=== PATIENT | female | born 1970 | race Caucasian/White ===

== ENCOUNTER 2017-01-28 15:01 | Emergency (ER) | payer MEDICAID ==
[~2017-01-28] VITALS: Ht 160 cm; Wt 66.0 kg
[2017-01-28 15:05] VITALS: Ht 160 cm; Wt 66.0 kg
[2017-01-28] MEDS ORDERED: KETOROLAC 30 MG INJ IV STA (15:31)
[2017-01-28] MEDS ORDERED: SOD CHLORIDE 0.9% 100 ML ONE (17:21)
[2017-01-28] MEDS ORDERED: IOHEXOL 300MG/ML 150 ML BTL ONE (17:21)
--- NOTE | 2017-01-28 18:34 | RADRPT ---
PROCEDURE: CT Abdomen and Pelvis with contrast. CLINICAL INDICATION: Right lower quadrant and lower abdominal pain. TECHNIQUE: CT scan of the abdomen and pelvis with contrast was performed on a multi-detector high- resolution CT scanner. The patient was scanned following the uncomplicated intravenous administrati on of 100 cc of Omnipaque 300. Coronal and sagittal reformatted images were obtained from the axial source images. Images were reviewed on a high-resolution PACS workstation. The total exam CTDI equa ls 7.11 mGy and the total exam DLP equals 827.72 mGy-cm. One or more of the following dose reduction techniques were used: - Automated exposure control. - Adjustment of the mA and/or kV according to patient size. - Use of iterative reconstruction technique. COMPARISON: None. FINDINGS: There is mild posterior dependent atelectasis within the partially imaged lower lungs. The partially imaged heart appears normal in size and without evidence of pericardial effusion or thickening. The liver is normal in size, morphology, and attenuation. There is no evidence of solid hepatic mass or intrahepatic biliary ductal dilatation. The main portal veins and hepatic veins are patent. The gallbladder contains multiple gallstones, with the largest gallstone measuring up to approximate ly 2.6 cm (series 3, image 50). There is mild diffuse gallbladder wall thickening and small perichol ecystic fluid. The spleen, pancreas, and bilateral adrenal glands are unremarkable. The kidneys are normal and symmetric in size and morphology. A 1.8 cm left upper pole parapelvic cys t is noted (series 3, image 41; series 601, image 60). There is no hydronephrosis or hydroureter. No radiopaque renal or ureteral calculus is identified. No perirenal collection is seen. The stomach, small and large bowel are unremarkable. There is no evidence of bowel obstruction or fo kelley bowel wall thickening. A normal appearing appendix is identified in the right lower quadrant/pel vis. No periappendiceal inflammatory changes are identified. No free fluid free air is identified. The lower thoracic and abdominal aorta is normal in course and caliber. No lymphadenopathy is identi fied in the abdomen, pelvis, retroperitoneum, or inguinal regions. The uterus is diffusely mildly heterogeneous, likely myomatous. There is prominent enlargement of th e lower uterine segment/cervix and a small amount of fluid in the endometrial canal. A 2.2 cm hyperd ense left ovarian cyst is identified, possibly a hemorrhagic cyst (series 3, image 130). The right o vary is poorly visualized, but grossly unremarkable. Multiple prominent venous collaterals are seen within the lower pelvis and adnexal regions. Correlate clinically for possible pelvic venous congest ion syndrome. The unenhanced urinary bladder is grossly unremarkable. There are multilevel degenerative changes of the visualized spine. At L5-S1, there is severe hypertr ophic facet joint arthropathy on the right and moderate hypertrophic facet joint arthropathy on the left. No suspicious osteolytic or osteoblastic lesion is detected. IMPRESSION: 1. Cholelithiasis with gallstones measuring up to 2.6 cm. There is diffuse mild gallbladder wall thi ckening and small pericholecystic fluid. The imaging features are suggestive of acute cholecystitis. Gallbladder ultrasound may provide further evaluation, as clinically indicated. 2. Heterogeneous uterus, possibly myomatous. In addition, there is prominence of the lower uterine s egment/cervix and a small amount of fluid in the endometrial canal. Consider pelvic ultrasound and p elvic exam for further evaluation. 3. Multiple prominent venous collaterals in the lower pelvis and adnexal regions. Correlate clinical ly for possible pelvic venous congestion syndrome. 4. Left ovarian 2.2 cm hyperdense cyst, likely a hemorrhagic cyst. 5. Left renal parapelvic cyst measuring 1.8 cm. Call report was made to Dr. Raman at 18:27 on 01/28/2017. RPTAT: [facility] Physician Haider Date Time Electronically viewed and signed by Physician Haider on 01/28/2017 18:34 SHANDA/
--- NOTE | 2017-01-28 19:01 | RADRPT ---
PROCEDURE: US Abdomen. CLINICAL INDICATION: abdominal pain TECHNIQUE: Multiple real-time images were acquired of the patient's right upper quadrant abdomen a nd retroperitoneum utilizing a high resolution transducer. COMPARISON: CT same day FINDINGS: The liver demonstrates normal echogenicity. The liver is normal in size and no focal solid lesions are seen. The liver measures 15.5 cm in length. The portal vein is patent with normal direction of f low. No intrahepatic biliary dilatation is seen. Multiple large calcified gallstones are identified within the gallbladder. There is no pericholecys tic fluid or gallbladder wall thickening. The common bile duct measures 3.6 mm in maximal dimension. The visualized portions of the pancreas are unremarkable. The tail of the pancreas is not seen. No free fluid is identified. The right kidney is normal in size, and demonstrate normal echogenicity and cortical thickness. The right kidney measures 10.1 cm in long dimension. There is no evidence of hydronephrosis. There are no kidney stones. RPTAT: AA IMPRESSION: Multiple large calcified gallstones are identified within the gallbladder. No pericholecystic fluid or gallbladder wall thickening. .Diego Butt MD, MD Date Time Electronically viewed and signed by .Diego Butt MD, MD on 01/28/2017 19:01 .S/
--- NOTE | 2017-01-28 19:22 | RADRPT ---
PROCEDURE: US Pelvis. CLINICAL INDICATION: Pelvic pain. TECHNIQUE: The pelvis was evaluated with transabdominal and transvaginal sonography in the axial a nd sagittal planes. COMPARISON: No prior study is available for comparison. FINDINGS: Uterus: 9.1 x 4.4 x 5.0 cm. Endometrium: 7.3 mm. Right ovary: Not visualized. Left ovary: 3.1 x 1.8 x 1.9 cm. Uterine masses: The uterus is diffusely heterogeneous with a fundal fibroid measuring 2.5 x 2.1 x 1. 8 cm. Ovarian masses: The right ovary is not visualized. The left ovary is normal. Color Doppler and pulse d Doppler sonography demonstrate normal flow to the left ovary. Other pelvic masses: None. Free fluid: None. IMPRESSION: 1. Diffusely heterogeneous uterus with a fundal fibroid measuring 2.5 cm in maximal dimension. 2. Right ovary not visualized. 3. Otherwise normal pelvic ultrasound. RPTAT: QQ .Pancho Mckeon MD, MD Date Time Electronically viewed and signed by .Pancho Mckeon MD, on 01/28/2017 19:21 .R/
[2017-01-28] MEDS ORDERED: IBUP-1542 PO (19:41)
[2017-01-28] MEDS ORDERED: TRAM50TA2 PO (19:41)
--- NOTE | 2017-01-28 19:45 | ERD ---
ER Documentation Chief Complaint Chief Complaint RIGHT LQ ABD. PAIN WITH N/V FOR 2 DAYS; HPI This 38-year-old female presents with lower abdominal pain for the last 2 days. She has some nausea but no vomiting. Denies fevers, vaginal discharge, . Pain seems to migrate from her epigastric area, left lower quadrant symptoms and suprapubic or right lower quadrant. ROS All systems reviewed and are negative except as per history of present illness. Medications Home Meds Active Scripts Tramadol HCl (Tramadol HCl) 50 Mg Tablet, 50 MG PO Q4 Y for PAIN, #15 TAB Prov:SRINIVASA MEHTA MD 01/28/17 Ibuprofen* (Motrin*) 600 Mg Tab, 600 MG PO Q6, #20 TAB Prov:SRINIVASA MEHTA MD 01/28/17 Allergies Allergies: Coded Allergies: No Known Drug Allergies (Verified Allergy, Unknown, 09/17/08) PMhx/Soc History of Surgery: Yes () Anesthesia Reaction: No Hx Neurological Disorder: No Hx Respiratory Disorders: No Hx Cardiac Disorders: No Hx Psychiatric Problems: No Hx Miscellaneous Medical Probl: No Hx Alcohol Use: No Hx Substance Use: No Hx Tobacco Use: No Smoking Status: Never smoker Physical Exam Vitals Vital Signs Date Time Temp Pulse Resp B/P Pulse Ox O2 Delivery O2 Flow Rate FiO2 01/28/17 15:05 98.6 95 18 155/83 98 Physical Exam Const: [], [id number]. Head: Atraumatic Eyes: Normal Conjunctiva ENT: Normal External Ears, Nose and Mouth. Neck: Full range of motion..~ No meningismus. Resp: Clear to auscultation bilaterally Cardio: Regular rate and rhythm, no murmurs Abd: Soft, tender diffusely in the lower abdomen without rebound or masses. No exquisite tenderness at McBurney's point no Edmond sign., non distended. Normal bowel sounds Skin: No petechiae or rashes Back: No midline or flank tenderness Ext: No cyanosis, or edema Neur: Awake and alert Psych: Normal Mood and Affect Result Diagram: 01/28/17 1540 01/28/17 1540 Results 24 hrs Laboratory Tests Test 01/28/17 15:40 White Blood Count 6.810^3/ul Red Blood Count 4.6210^6/ul Hemoglobin 14.5g/dl Hematocrit 42.7% Mean Corpuscular Volume 92.4fl Mean Corpuscular Hemoglobin 31.4pg Mean Corpuscular Hemoglobin Concent 34.0g/dl Red Cell Distribution Width 11.8% Platelet Count 25622^3/UL Mean Platelet Volume 11.6fl Neutrophils % 65.7% Lymphocytes % 24.7% Monocytes % 5.6% Eosinophils % 3.4% Basophils % 0.3% Nucleated Red Blood Cells % 0.0/100WBC Neutrophils # 4.510^3/ul Lymphocytes # 1.710^3/ul Monocytes # 0.410^3/ul Eosinophils # 0.210^3/ul Basophils # 0.010^3/ul Nucleated Red Blood Cells # 0.010^3/ul Urine Color YELLOW Urine Clarity CLEAR Urine pH 6.0 Urine Specific [place] 1.010 Urine Ketones NEGATIVEmg/dL Urine Nitrite NEGATIVEmg/dL Urine Bilirubin NEGATIVEmg/dL Urine Urobilinogen NEGATIVEmg/dL Urine Leukocyte Esterase NEGATIVELeu/ul Urine Microscopic RBC 8/HPF Urine Microscopic WBC 1/HPF Urine Squamous Epithelial Cells FEW/HPF Urine Bacteria FEW/HPF Urine Hemoglobin 2+mg/dL Urine Glucose NEGATIVEmg/dL Urine Total Protein NEGATIVEmg/dl Sodium Level 143mmol/L Potassium Level 4.3mmol/L Chloride Level 104mmol/L Carbon Dioxide Level 28mmol/L Anion Gap 15 Blood Urea Nitrogen 11mg/dl Creatinine 0.73mg/dl Glucose Level 139mg/dl Calcium Level 9.5mg/dl Total Bilirubin 0.3mg/dl Direct Bilirubin 0.00mg/dl Indirect Bilirubin 0.3mg/dl Aspartate Amino Transf (AST/SGOT) 30IU/L Alanine Aminotransferase (ALT/SGPT) 43IU/L Alkaline Phosphatase 78IU/L Total Protein 8.3g/dl Albumin 4.5g/dl Globulin 3.80g/dl Albumin/Globulin Ratio 1.18 Lipase 81U/L Current Medications Medications (Trade) Dose Ordered Sig/Colt Route PRN Reason Start Time Stop Time Status Last Admin Dose Admin Ketorolac Tromethamine (Toradol) 30 mg ONCE STAT IV 01/28/17 15:31 01/28/17 15:32 DC 01/28/17 15:49 IV Flush 10 ml 10 ml STK-MED ONCE .ROUTE 01/28/17 17:21 01/28/17 17:22 DC 01/28/17 17:34 Sodium Chloride (NS) 100 ml @ ud STK-MED ONCE .ROUTE 01/28/17 17:21 01/28/17 17:22 DC 01/28/17 17:35 Iohexol (Omnipaque 300mg/ ml) 150 ml STK-MED ONCE .ROUTE 01/28/17 17:21 01/28/17 17:22 DC 01/28/17 17:35 Azithromycin 1000 mg 1,000 mg ONCE ONCE PO 01/28/17 20:00 01/28/17 20:01 Ceftriaxone Sodium/Sodium Chloride (Rocephin/NS) 50 ml @ 0 mls/hr ONCE ONCE IVPB 01/28/17 20:00 01/28/17 20:01 Procedures/MDM Given the uncertain cause of abdominal pain and IV was obtained. CBC and CMP showed no acute abnormalities. Urine shows no signs of infection, or glucose. There is hemoglobin only. HCG is negative. The abdomen and pelvis with IV contrast shows gallstones with possible cholecystitis. There is some small cyst in the pelvic area and there is some inflammation and congestion in the lower uterus with possible myomatous uterus. There is no signs of abscess or appendicitis. Radiology recommends ultrasound for further evaluation. Right upper quadrant ultrasound shows gallstones without evidence of cholecystitis or common bile duct obstruction. Pelvic ultrasound shows small ovarian cyst and myomatous uterus. Is no appreciable acute findings. Pelvic exam shows slight amount of discharge from the eyes. There is no abnormalities of the cervix. Possible mild generalized pelvic tenderness. She will be treated empirically for cervicitis with Zithromax 1 g by mouth and Rocephin 500 mg IV. Was given Toradol 30 mg IV for pain. Urine was sent for gonorrhea chlamydia. Patient presents with lower pelvic pain of uncertain etiology. Differential includes ovarian cyst, cervicitis, myomatous uterus. She had a Pap smear this morning upon further history and she is advised to follow-up with [facility] for these results. She will treated with tramadol ibuprofen for pain. Patient is advised to return for fevers, vomiting, new worsening symptoms or primary doctor as directed. Currently is no evidence to suggest cholecystitis, acute abdomen, appendicitis, pyelonephritis, sepsis. Departure Diagnosis: Primary Impression: Pelvic pain Condition: Stable Patient Instructions: Gallstones, Pelvic Pain, Unknown Cause Referrals: NO PRIMARY,CARE PHYSICIAN (PCP) Additional Instructions: See primary doctor for results of Pap smear. No acute abnormalities seen on CT scan. We will treat for infection. Recheck for fevers, vomiting, worsening pain, new worsening symptoms or primary care doctor. SRINIVASA MEHTA MD Jan 28, 2017 19:45
[2017-01-28] MEDS ORDERED: CEFTRIAXONE 500 MG in SOD CHLORIDE 0.9% 50 ML IVPB ONE (20:00)
[2017-01-28] MEDS ORDERED: AZITHROMYCIN 250 MG TAB PO ONE (20:00)
[2017-01-28 20:40] VITALS: BP 126/66; PULSE 73; RESP 14; TEMP 99.1
== END 2017-01-28 20:41 | disposition home or self-care (01) ==
LOC: FTE 15:01
DX: R10.2 Pelvic and perineal pain (principal)
CPT/HCPCS: 36415; 74177; 76705; 76830; 76856; 80053; 81001; 83690; 85025; 87591; 96374; 96375; J0696; J1885; Q9967; Z7502; Z7610